=== PATIENT | female | born 1935 | race Caucasian/White ===

== ENCOUNTER 2023-06-27 05:20 | Emergency (ER) | payer MEDICARE, OTHER, SELFPAY ==
[2023-06-27 05:20] VITALS: BP 138/85; PULSE 76; RESP 18; TEMP 36.4; O2SAT 97; BMI 17.2
--- NOTE | 2023-06-27 05:26 | CT_ITS ---
PROCEDURE INFORMATION: Exam: CT Cervical Spine Without Contrast Exam date and time: 06/27/2023 5:44 AM Age: 87 years old Clinical indication: Neck pain; Additional info: Fall, old age TECHNIQUE: Imaging protocol: Computed tomography of the cervical spine without contrast. Radiation optimization: All CT scans at this facility use at least one of these dose optimization techniques: automated exposure control; mA and/or kV adjustment per patient size (includes targeted exams where dose is matched to clinical indication); or iterative reconstruction. COMPARISON: CT HEAD/BRAIN WO CON 06/27/2023 5:42 AM FINDINGS: Bones/joints: There is a scoliosis. There is loss of disc space height throughout related to degenerative disc disease. There also facet joint degenerative changes throughout. There is no acute cervical spine fracture. Lungs: There is a 5 mm left apical granuloma. Vasculature: There is atherosclerotic disease of carotid arteries not fully assessed. Soft tissues: The right lobe of the thyroid is diminutive. IMPRESSION: 1. Degenerative changes throughout. 2. There is no acute cervical spine fracture.
--- NOTE | 2023-06-27 05:26 | XR_ITS ---
PROCEDURE INFORMATION: Exam: XR Left Knee Exam date and time: 06/27/2023 5:43 AM Age: 87 years old Clinical indication: Pain; Knee; Left; Additional info: Fall TECHNIQUE: Imaging protocol: Radiologic exam of the left knee. Views: 3 views. COMPARISON: No relevant prior studies available. FINDINGS: Bones/joints: Partially imaged plate and screw fixation of a healing distal femur fracture. Visualized hardware appears intact. No acute fractures are seen. Moderate tricompartmental degenerative changes. Osteopenia. No joint effusion. Soft tissues: Normal. Vasculature: Vascular calcifications. IMPRESSION: Partially imaged plate and screw fixation of a healing distal femur fracture. Visualized hardware appears intact. No acute fractures are seen.
--- NOTE | 2023-06-27 05:26 | XR_ITS ---
PROCEDURE INFORMATION: Exam: XR Chest Exam date and time: 06/27/2023 5:43 AM Age: 87 years old Clinical indication: Pain; Chest pressure; Additional info: Fall TECHNIQUE: Imaging protocol: Radiologic exam of the chest. Views: 1 view. COMPARISON: No relevant prior studies available. FINDINGS: Lungs: Airspace disease in the mid right lung. Pleural spaces: Unremarkable. No pleural effusion. No pneumothorax. Heart/Mediastinum: Query small to moderate hiatal hernia. Bones/joints: Acute appearing rib fractures involving the right posterior 7th and 8th ribs. Left shoulder arthroplasty. IMPRESSION: 1. Acute appearing rib fractures involving the right posterior 7th and 8th ribs. 2. Airspace disease in the mid right lung may reflect contusion or aspiration/pneumonia.
--- NOTE | 2023-06-27 05:26 | CT_ITS ---
PROCEDURE INFORMATION: Exam: CT Head Without Contrast Exam date and time: 06/27/2023 5:42 AM Age: 87 years old Clinical indication: Pain; Headache; Additional info: Fall, hematomas TECHNIQUE: Imaging protocol: Computed tomography of the head without contrast. Radiation optimization: All CT scans at this facility use at least one of these dose optimization techniques: automated exposure control; mA and/or kV adjustment per patient size (includes targeted exams where dose is matched to clinical indication); or iterative reconstruction. COMPARISON: No relevant prior studies available. FINDINGS: Brain: The brain demonstrates diffuse volume loss. There is white matter hypodensity most consistent with chronic small vessel ischemic change. There is no acute parenchymal or extra-axial hemorrhage. Cerebral ventricles: The ventricles and CSF spaces are proportionately enlarged. Paranasal sinuses: Visualized sinuses are unremarkable. No fluid levels. Mastoid air cells: Visualized mastoid air cells are well aerated. Orbital cavities: There are postoperative changes from prior cataract surgery. Bones/joints: No acute fracture. Soft tissues: There is a large left frontal soft tissue contusion/hematoma. There is a small high right parietal soft tissue contusion. IMPRESSION: 1. Atrophy and the sequela of prior small vessel ischemia. 2. There is no acute intracranial abnormality.
--- NOTE | 2023-06-27 05:26 | XR_ITS ---
PROCEDURE INFORMATION: Exam: XR Pelvis Exam date and time: 06/27/2023 5:43 AM Age: 87 years old Clinical indication: Pelvic pain; Additional info: Fall TECHNIQUE: Imaging protocol: Radiologic exam of the pelvis. Views: 1 or 2 view. COMPARISON: No relevant prior studies available. FINDINGS: Tubes, catheters and devices: Right bipolar hip hemiarthroplasty with cerclage wire fixation about proximal femur. There is also partially imaged plate and screw fixation of the right proximal femur. Intramedullary nail and screw fixation of a remote left intertrochanteric femur fracture. Remote fractures of left superior and inferior pubic rami. Osteopenia. Mild degenerative changes of the left hip. Bones/joints: See Tubes, catheters and devices finding. Soft tissues: Unremarkable. Vasculature: A stent projects over the region of the left femoral vasculature. IMPRESSION: No definite acute fractures are identified, though osteopenia and hardware somewhat limits evaluation. Consider CT if there is high clinical concern.
--- NOTE | 2023-06-27 05:39 | PC.NURSE ---
Pt lacerations cleansed with soap and water, damp gauze applied
[2023-06-27 06:00] VITALS: BP 138/85; PULSE 59; O2SAT 97
--- NOTE | 2023-06-27 06:05 | ED_ITS ---
Discharge Plan Disposition Patient Disposition: Home, Self-Care Condition: Good Prescriptions Prescriptions: No Action acetaminophen 650 mg tablet extended release 650 mg PO Q4HP PRN ascorbic acid (vitamin C) 500 mg capsule 500 mg PO DAILY aspirin 81 mg tablet,delayed release (DR/EC) 81 mg PO DAILY clopidogrel 75 mg tablet 75 mg PO DAILY ferrous sulfate 325 mg (65 mg iron) tablet 325 mg PO DAILY ipratropium-albuterol 0.5 mg-3 mg(2.5 mg base)/3 mL solution for nebulization 3 ml inhalation Q6H PRN Lactobacillus acidophilus Capsule 10 mg PO DAILY furosemide [Lasix] 20 mg tablet 20 mg PO DAILY polyethylene glycol 3350 [Miralax] 17 gram/dose powder 17 g PO DAILY Qty: 119 0RF Oyster Shell Calcium-Vit D3 500 mg-5 mcg (200 unit) powder in packet PO pantoprazole 40 mg tablet,delayed release (DR/EC) 40 mg PO DAILY senna 8.6 mg capsule 8.6 mg PO DAILY Qty: 30 0RF Theratrum Complete 50 Plus-lyc 0.4 mg-300 mcg- 250 mcg tablet 1 tab PO DAILY zinc gluconate 30 mg tablet 30 mg PO DAILY Referrals Follow up/Referrals: Doc Stuart MD [Primary Care Provider] - See instructions Activity Restrictions/Add. Instructions Additional Instructions/Restrictions: You were evaluated in the emergency department today. We do see compression fractures of your spine and rib fractures, which appear to be old given that you are not having pain there. You also had a laceration to your scalp that was repaired with yvon. Yvon will need to be removed in 10 to 14 days. There are 3. Return to the emergency department for new or worsening symptoms. Clinical Impressions Clinical Impression: Hematoma of parietal scalp, Compression fracture Laceration of scalp Qualifiers: Encounter type: initial encounter Qualified Code(s): S01.01XA - Laceration without foreign body of scalp, initial encounter Rib fractures Qualifiers: Encounter type: initial encounter Fracture type: closed Laterality: right Qualified Code(s): S22.41XA - Multiple fractures of ribs, right side, initial encounter for closed fracture Instructions Patient Instructions: DI for Laceration Repair, How to Prevent Falls Discharge ED Provider: Frances Condon General Adult HPI <John Arvizu MD - Last Filed: 01/24/24 07:17> General Chief complaint: Fall Stated complaint: fall from bed, several skin tear, 4cm hematoma Time Seen by Provider: 06/27/23 05:25 Mode of Arrival: EMS Source of Information: Patient Limitations: No Limitations Description of Symptoms (Recalled from ER Triage Doc. by RN): Pt took a fall from her bed at nursing facility. No LOC per staff, pt suffered lac to top of head, and forehead with hematoma, and skin tear to left knee. Pt complains only of a headache, no pain in neck, back or extremities. History of Present Illness HPI narrative: 87-year-old female with history of frequent falls, senior care resident, presents with a fall. Patient fell from her bed at the nursing facility. No loss of consciousness reported. Patient has multiple scalp hematomas and a skin tear to the left knee. Patient does not have any acute complaints at this time, just reports that her head hurts when you press on it. Related Data Home Medications Medication Instructions Recorded Confirmed Lactobacillus acidophilus 10 mg PO DAILY 06/22/23 acetaminophen 650 mg 650 mg PO Q4HP PRN 06/22/23 tablet,extended release ascorbic acid (vitamin C) 500 mg 500 mg PO DAILY 06/22/23 capsule aspirin 81 mg tablet,delayed 81 mg PO DAILY 06/22/23 release calcium carbonate 500 mg-vitamin ea PO 06/22/23 D3 5 mcg (200 unit) oral powder pack (Oyster Shell Calcium) clopidogrel 75 mg tablet 75 mg PO DAILY 06/22/23 ferrous sulfate 325 mg (65 mg 325 mg PO DAILY 06/22/23 iron) tablet furosemide 20 mg tablet (Lasix) 20 mg PO DAILY 06/22/23 ipratropium 0.5 mg-albuterol 3 mg 3 ml inhalation Q6H PRN 06/22/23 (2.5 mg base)/3 mL nebulization soln owbnrtts-[id number] acid 0.4 1 tab PO DAILY 06/22/23 mg-lycopene 300 mcg-lutein 250 mcg tablet (Theratrum Complete 50 Plus(lycopene,lutein)) pantoprazole 40 mg tablet,delayed 40 mg PO DAILY 06/22/23 release zinc gluconate 30 mg tablet 30 mg PO DAILY 06/22/23 Previous Rx's Medication Instructions Recorded polyethylene glycol 3350 17 17 g PO DAILY #119 grams 06/22/23 gram/dose oral powder (Miralax) sennosides 8.6 mg capsule (senna) 8.6 mg PO DAILY #30 caps 06/22/23 Allergies Allergy/AdvReac Type Severity Reaction Status Date / Time No Known Allergies Allergy Unverified 06/19/23 10:04 [facility] <John Arvizu MD - Last Filed: 06/27/23 07:17> [facility] Disclaimer: The information contained in this section may have been updated after the patient was seen, as this information can be updated by other users. Social History (Updated 06/11/23 @ 09:22 by Aziza Partida APRN) Smoking Status: Current every day smoker alcohol intake: never current occupational status: retired Travel in the last 8 weeks: None <John Arvizu MD - Last Filed: 06/27/23 07:17> ROS Obtained: Yes All systems reviewed & no additional complaints except as documented Physical Exam <John Arvizu MD - Last Filed: 06/27/23 07:17> General General appearance: alert, in no apparent distress and other (Thin appearing) Head Head exam: normocephalic and other (Hematoma over the parietal scalp, left forehead, small laceration noted) Eye Eye exam: Present normal appearance, PERRL and EOMI ENT ENT exam: Present normal oropharynx and normal external ear exam Neck Neck exam: Present normal inspection and full ROM; Absent tenderness (No midline spinal tenderness) Chest Chest inspection: Present normal inspection and symmetric chest wall rise; Absent tenderness Respiratory Respiratory exam: Present normal lung sounds bilaterally; Absent respiratory distress Cardiovascular Cardiovascular exam: Present regular rate and normal rhythm Abdominal Exam Abdominal exam: Present soft; Absent distention, tenderness or guarding Extremities Exam Extremities exam: Present other (Diffuse scabbing and skin tears and bruising in various stages of healing. She has a skin tear over the left lateral knee. No bony tenderness over the extremities.) Back Exam Back exam: Present normal inspection; Absent tenderness Neurological Exam Neurological exam: Present alert and oriented X3; Absent motor sensory deficit Psychiatric Psychiatric exam: Present normal affect and normal mood Skin Skin exam: Present warm and dry Lymphatic Lymphatic Findings: no adenopathy Medical Decision Making <John Arvizu MD - Last Filed: 06/27/23 07:17> Medical Records Medical records reviewed: Yes I reviewed the patient's medical records. Joaquim Inquiry Pt receiving controlled substance: No Joaquim was queried for this patient: No Vital Signs: 06/27/23 05:20 06/27/23 06:00 06/27/23 07:00 Temperature 97.6 F Temperature Source Oral Pulse Rate 59 L 65 Pulse Rate [Left] 76 Respiratory Rate 18 Blood Pressure 138/85 141/88 H Blood Pressure [Right Arm] 138/85 Blood Pressure Mean 102 Blood Pressure Mean [Right Arm] 102 Blood Pressure Source [Right Arm] Automatic Cuff Blood Pressure Position [Right Arm] Sitting 02 Sat by Pulse Oximetry 97 97 99 Oxygen Delivery Method Room Air Room Air Room Air 06/27/23 07:28 06/27/23 08:30 Temperature Temperature Source Pulse Rate 67 56 L Pulse Rate [Left] Respiratory Rate Blood Pressure 140/89 132/83 Blood Pressure [Right Arm] Blood Pressure Mean Blood Pressure Mean [Right Arm] Blood Pressure Source [Right Arm] Blood Pressure Position [Right Arm] 02 Sat by Pulse Oximetry 98 99 Oxygen Delivery Method Room Air Room Air Lab Data Lab results reviewed: Yes I reviewed the patient's lab results. Orders (Tests/Meds): ED MEDICATIONS Discontinued Medications Generic Name Dose Route Start Last Admin Trade Name Freq PRN Reason Stop Dose Admin Tetanus/Reduced Diphtheria/Acell Pertussis 0.5 ml 06/27/23 06:57 06/27/23 07:04 Tet/Diphth/Pert-Adult 0.5ml Syringe IM 06/27/23 06:58 0.5 ml .ONCE ONE Administration ORDERS Category Date Time Status CT abdomen pelvis wo con Stat Cat Scan 06/27/23 06:[address] cervical spine wo con Stat Cat Scan 06/27/23 05:[address] chest wo con Stat Cat Scan 06/27/23 06:[address] head/brain wo con Stat Cat Scan 06/27/23 05:[address] lumbar spine wo con Stat Cat Scan 06/27/23 06:[address] thoracic spine wo con Stat Cat Scan 06/27/23 06:50 Completed CXR --portable [XR chest portable] Stat Exams 06/27/23 05:26 Completed Knee XR left 3 views [XR knee LT 3V] Stat Exams 06/27/23 05:26 Completed Pelvis XR 1-2 views [XR pelvis 1-2V] Stat Exams 06/27/23 05:26 Completed Medical Decision Narrative: 87-year-old female, presentation complicated by history of COPD, connective tissue disorder, peripheral vascular disease, advanced age, presents with scalp hematomas and skin tear to left knee after a fall. History was obtained via conversation with patient, EMS, nursing facility. On arrival, patient is [afebrile, hemodynamically stable, satting appropriately, alert, oriented x4, GCS 15], moving all extremities spontaneously. Full physical exam performed and significant for traumatic findings as documented above. Differential includes but is not limited to intracranial trauma, C-spine trauma,. Workup initiated including CT head, CT C-spine, radiographs of the chest, pelvis, left knee. On re-evaluation, patient [remains afebrile, HD stable.] Patient scalp laceration was repaired at bedside by me with 3 yvon. The skin tears of the left knee were cleaned and dressed. Imaging independently interpreted by me and significant for no acute intracranial bleeding. No acute cervical fracture. Radiograph of the chest shows 2 new displaced rib fractures. See radiology read for full review of final results. Given acute rib fractures on chest x-ray, will evaluate with Noncon imaging of the chest abdomen pelvis and spine to assess for other traumatic injuries. At this time care handed off to oncoming physician. <Frances Condon, DO - Last Filed: 06/27/23 09:08> Vital Signs: 06/27/23 05:20 06/27/23 06:00 06/27/23 07:00 Temperature 97.6 F Temperature Source Oral Pulse Rate 59 L 65 Pulse Rate [Left] 76 Respiratory Rate 18 Blood Pressure 138/85 141/88 H Blood Pressure [Right Arm] 138/85 Blood Pressure Mean 102 Blood Pressure Mean [Right Arm] 102 Blood Pressure Source [Right Arm] Automatic Cuff Blood Pressure Position [Right Arm] Sitting 02 Sat by Pulse Oximetry 97 97 99 Oxygen Delivery Method Room Air Room Air Room Air 06/27/23 07:28 06/27/23 08:30 Temperature Temperature Source Pulse Rate 67 56 L Pulse Rate [Left] Respiratory Rate Blood Pressure 140/89 132/83 Blood Pressure [Right Arm] Blood Pressure Mean Blood Pressure Mean [Right Arm] Blood Pressure Source [Right Arm] Blood Pressure Position [Right Arm] 02 Sat by Pulse Oximetry 98 99 Oxygen Delivery Method Room Air Room Air Orders (Tests/Meds): ED MEDICATIONS Discontinued Medications Generic Name Dose Route Start Last Admin Trade Name Freq PRN Reason Stop Dose Admin Tetanus/Reduced Diphtheria/Acell Pertussis 0.5 ml 06/27/23 06:57 06/27/23 07:04 Tet/Diphth/Pert-Adult 0.5ml Syringe IM 06/27/23 06:58 0.5 ml .ONCE ONE Administration ORDERS Category Date Time Status CT abdomen pelvis wo con Stat Cat Scan 06/27/23 06:[address] cervical spine wo con Stat Cat Scan 06/27/23 05:[address] chest wo con Stat Cat Scan 06/27/23 06:[address] head/brain wo con Stat Cat Scan 06/27/23 05:[address] lumbar spine wo con Stat Cat Scan 06/27/23 06:[address] thoracic spine wo con Stat Cat Scan 06/27/23 06:50 Completed CXR --portable [XR chest portable] Stat Exams 06/27/23 05:26 Completed Knee XR left 3 views [XR knee LT 3V] Stat Exams 06/27/23 05:26 Completed Pelvis XR 1-2 views [XR pelvis 1-2V] Stat Exams 06/27/23 05:26 Completed Medical Decision Narrative: 87-year-old female, presentation complicated by history of COPD, connective tissue disorder, peripheral vascular disease, advanced age, presents with scalp hematomas and skin tear to left knee after a fall. History was obtained via conversation with patient, EMS, nursing facility. On arrival, patient is [afebrile, hemodynamically stable, satting appropriately, alert, oriented x4, GCS 15], moving all extremities spontaneously. Full physical exam performed and significant for traumatic findings as documented above. Differential includes but is not limited to intracranial trauma, C-spine trauma,. Workup initiated including CT head, CT C-spine, radiographs of the chest, pelvis, left knee. On re-evaluation, patient [remains afebrile, HD stable.] Patient scalp laceration was repaired at bedside by me with 3 yvon. The skin tears of the left knee were cleaned and dressed. Imaging independently interpreted by me and significant for no acute intracranial bleeding. No acute cervical fracture. Radiograph of the chest shows 2 new displaced rib fractures. See radiology read for full review of final results. Given acute rib fractures on chest x-ray, will evaluate with Noncon imaging of the chest abdomen pelvis and spine to assess for other traumatic injuries. At this time care handed off to oncoming physician. DO Taurus: On my assessment of the patient, she is resting comfortably and is ambulating throughout the emergency department out difficulty. She complains of no pain or other concerns at this time. I independently interpreted CT scan prior to radiology read and noted rib fractures as well as compression fractures. Per radiology, they are unable to determine if these are acute or chronic but favor chronic. Please see their read for final interpretations. Patient has no tenderness over these areas, even with firm palpation, and is having no pain whatsoever. Her family at bedside notes that she did have a fall with rib fractures after [place]. At this time, feel the patient is appropriate for discharge back to her facility given that all of her injuries appear to be chronic. She was given instructions for wound care and supportive management, strict and precautions, and the patient was discharged back to nursing facility in stable condition. Procedures <John Arvizu MD - Last Filed: 06/27/23 07:17> Risk/Benefits of Procedure(s) Were Explained: Yes <Frances Condon DO - Last Filed: 06/27/23 09:08> Laceration Laceration 1: Site: scalp Side (If applicable): right Size (cm): 1 Description: linear Depth: simple, single layer Pre-repair: wound explored and irrigated extensively Skin layer closed with: other (yvon x 3) Critical Care <John Arvizu MD - Last Filed: 06/27/23 07:17> Critical Care Time Critical Care Time: No
--- NOTE | 2023-06-27 06:32 | PC.NURSE ---
Pt left leg lac cleansed , non adherent bandage and curlex applied
--- NOTE | 2023-06-27 06:47 | PC.NURSE ---
Pt provided cup of coffee, ok per
--- NOTE | 2023-06-27 06:50 | CT_ITS ---
FINAL REPORT TECHNIQUE: Axial images through the abdomen and pelvis were performed without contrast. This study was performed with techniques to keep radiation doses as low as reasonably achievable, (ALARA). Individualized dose reduction techniques using automated exposure control or adjustment of mA and/or kV according to the patient's size were employed. CLINICAL HISTORY: fall, pain FINDINGS: Abdomen: There are scattered calcified granulomas in the liver and spleen. The gallbladder is present. The pancreas and adrenals are unremarkable. There is a nonobstructing stone in the right renal collecting system measuring 7 mm. There is a benign-appearing exophytic cyst in the left kidney measuring 2.7 cm. There is ectasia of the abdominal aorta measuring 3 cm in diameter. There is paucity of intra-abdominal fat. Pelvis: The urinary bladder is unremarkable. There is a large amount of retained stool throughout the colon. The appendix is not visualized. There is no pelvic mass or inflammation. Extensive streak artifact is seen from right hip prosthesis and orthopedic hardware is seen in the proximal left femur. There is an old healed fracture deformity of the left inferior pubic ramus. IMPRESSION: Nonobstructing stone in the right kidney. Constipation. Reviewed, Interpreted and Dictated by Buddy Jovel MD Transcribed by Telma Pina Authenticated and [facility]
--- NOTE | 2023-06-27 06:50 | CT_ITS ---
FINAL REPORT TECHNIQUE: Axial images were performed through the lumbar spine by computed tomography. Sagittal reconstruction images were also performed. This study was performed with techniques to keep radiation doses as low as reasonably achievable, (ALARA). Individualized dose reduction techniques using automated exposure control or adjustment of mA and/or kV according to the patient''s size were employed. CLINICAL HISTORY: fall FINDINGS: There are compression deformities of L1 and L2 involving about 50%. There is retropulsion of the inferior endplates of L1 and L2 resulting in [id number] spinal canal stenosis. There are advanced changes of degenerative disc disease from L3-4 through L5-S1. There is mild to moderate bilateral neural foraminal narrowing at these levels. IMPRESSION: Compression deformities of L1 and L2. Recommend MRI to assess for the presence of marrow edema. Reviewed, Interpreted and Dictated by Buddy Jovel MD Transcribed by Telma Pina Authenticated and [facility]
--- NOTE | 2023-06-27 06:50 | CT_ITS ---
FINAL REPORT TECHNIQUE: Axial images were obtained of the thoracic spine by computed tomography. Coronal and sagittal reconstruction process performed. This study was performed with techniques to keep radiation doses as low as reasonably achievable (ALARA). Individualized dose reduction techniques using automated exposure control or adjustment of mA and/or kV according to the patient's size were employed. CLINICAL HISTORY: fall, trauma FINDINGS: There are multiple compression deformities throughout the thoracic vertebra involving T4 through T12, most evident involving T8 and T12. There is mild retropulsion of the superior endplate of T12 with mild to moderate spinal canal stenosis. IMPRESSION: Multiple compression deformities as detailed above. MRI is recommended to determine acuity. Reviewed, Interpreted and Dictated by Buddy Jovel MD Transcribed by Telma Pina Authenticated and . [facility]
--- NOTE | 2023-06-27 06:50 | CT_ITS ---
FINAL REPORT TECHNIQUE: Axial images were obtained through the chest without contrast. Sagittal and coronal reformatted images were obtained and reviewed. This study was performed with techniques to keep radiation doses as low as reasonably achievable (ALARA). Individualized dose reduction techniques using automated exposure control or adjustment of mA and/or kV according to the patient's size were employed. CLINICAL HISTORY: fall, abnormal xrays FINDINGS: There is moderate vascular calcification. Dense coronary artery calcification is identified. There is a moderate hiatal hernia. The heart size is normal. There is no pericardial effusion. There is a nodular airspace opacity in the posterior right upper lobe. Noncalcified nodule is seen at the right base measuring 7 mm well seen on image 44 of series 5. There is consolidation and scarring in the lung bases. Small bilateral pleural effusions are identified. 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 There is deformity of the right posterior 7th and 8th ribs, may be acute or chronic. In addition, there is deformity of the inferior right scapula which appears chronic. IMPRESSION: Right upper lobe airspace opacity, probably related to small focus of pneumonia. Noncalcified nodule at the right base. Recommend follow-up CT in 6 months. Ectasia of the descending thoracic aorta. Deformity of the posterior right and 8th ribs posteriorly age indeterminate, favor chronic but correlate with site of point tenderness. Reviewed, Interpreted and Dictated by Buddy Jovel MD Transcribed by Telma Pina Authenticated and [facility]
[2023-06-27 07:00] VITALS: BP 141/88; PULSE 65; O2SAT 99
[2023-06-27] MEDS: TET/DIPHTH/PERT-ADULT 0.5ML SYRINGE 0.5 ML IM (07:04)
[2023-06-27 07:28] VITALS: BP 140/89; PULSE 67; O2SAT 98
[2023-06-27 08:30] VITALS: BP 132/83; PULSE 56; O2SAT 99
--- NOTE | 2023-06-27 09:07 | PC.NURSE ---
regular diet tray ordered for pt
--- NOTE | 2023-06-27 09:11 | PC.NURSE ---
breakfast tray set-up for pt
--- NOTE | 2023-06-27 09:21 | PC.NURSE ---
report given to alvin at [facility]
[2023-06-27 09:39] VITALS: BP 126/81; PULSE 62; RESP 18; TEMP 36.6; O2SAT 99
== END 2023-06-27 09:46 | disposition home or self-care (01) ==
PROVIDERS: Emergency Provider Emergency Medicine; PCP Family Medicine
DX: S01.01XA Laceration without foreign body of scalp, initial encounter (principal); S22.41XA Multiple fractures of ribs, right side, initial encounter for closed fracture; R51.9 Headache, unspecified; M48.061 Spinal stenosis, lumbar region without neurogenic claudication; J44.9 Chronic obstructive pulmonary disease, unspecified; I73.9 Peripheral vascular disease, unspecified; L94.9 Localized connective tissue disorder, unspecified; F17.200 Nicotine dependence, unspecified, uncomplicated; W06.XXXA Fall from bed, initial encounter
CPT/HCPCS: 12001; 70450; 71045; 71250; 72125; 72128; 72131; 72170; 73562; 74176; 90471; 90715; 99285